=== PATIENT | female | born 1985 | race Caucasian/White ===

== ENCOUNTER → 2018-02-14 | Outpatient (CLI) | payer OTHER, BC ==
[~2018-02-14] MED LIST: ACET-1757 PO; FLEC50TA25 PO; No meds per pt.
== END | disposition home or self-care (01) ==
LOC: CFH 14:48
PROVIDERS: ATTEND Internal Medicine Cardiovascular Disease
DX: R07.9 Chest pain, unspecified (principal); Z87.891 Personal history of nicotine dependence; Z86.79 Personal history of other diseases of the circulatory system
CPT/HCPCS: 93306

== ENCOUNTER → 2020-03-04 | Outpatient (CLI) | payer OTHER ==
[~2020-03-04] MED LIST changes: -ACET-1757 PO; +ACET-2065 PO
== END | disposition home or self-care (01) ==
LOC: CVU 07:44
PROVIDERS: ATTEND Internal Medicine Cardiovascular Disease
DX: I08.8 Other rheumatic multiple valve diseases (principal); R07.9 Chest pain, unspecified; I49.3 Ventricular premature depolarization
CPT/HCPCS: 93306

== ENCOUNTER 2020-06-26 06:09 | Day surgery (SDC) | payer OTHER ==
[~2020-06-26] VITALS: Ht 165.1 cm; Wt 71.0 kg
[2020-06-26] MEDS ORDERED: SODIUM CHLORIDE 0.9% 1,000 ML IV SCH (06:30)
[2020-06-26 06:31] VITALS: BP 130/87
[2020-06-26] MEDS ORDERED: MULT-257 PO (06:33)
[2020-06-26 07:02] LABS: BASOPHILS % (AUTO) 0 % (0-1); EOSINOPHILS % (AUTO) 1 % (1-7); LYMPHOCYTES % (AUTO) 29 % (22-44); MEAN CORPUSCULAR HGB CONC 34.2 g/dL (32.4-35.8); MEAN PLATELET VOLUME 9.3 fL (7.4-10.4); MONOCYTES % (AUTO) 6 % (2-9); NEUTROPHILS % (AUTO) 63 % (42-75); PLATELET COUNT 239 x10^3/uL (130-400); RED BLOOD COUNT 4.43 x10^6/uL (3.82-5.3); RED CELL DISTRIBUTION WIDTH 13.2 % (9.6-15.2)
[2020-06-26 07:03] LABS: MD NO
[2020-06-26 07:13] LABS: ANION GAP 7 mmol/L (5-15); CALCIUM 8.8 mg/dL (8.5-10.1); CHLORIDE 111 mmol/L (98-107); CREATININE 0.75 mg/dL (0.55-1.02)
[2020-06-26 07:37] LABS: INTERNATIONAL NORMALIZED RATIO 1.02 (0.93-1.1); PROTHROMBIN TIME 10.9 Seconds (9.6-11.5)
[2020-06-26] MEDS ORDERED: FENTANYL PF 100 MCG/2ML ONE (07:48)
[2020-06-26] MEDS ORDERED: MIDAZOLAM 1 MG/ML, 5ML ONE (07:48)
[2020-06-26] MEDS ORDERED: ISOPROTERENOL 0.2MG/ML, 5ML ONE (07:48)
[2020-06-26] MEDS ORDERED: LIDOCAINE 2%, 20ML ONE (07:49)
[2020-06-26] MEDS ORDERED: ACETAMINOPHEN 325 MG TABLET ONE (10:11)
[2020-06-27] MEDS ORDERED: MULTIVITAMIN 1 TABLET PO SCH (09:00)
== END 2020-06-26 14:25 | disposition home or self-care (01) ==
LOC: CACL 06:09
PROVIDERS: ATTEND Internal Medicine Cardiovascular Disease
DX: I49.3 Ventricular premature depolarization (principal); I47.2 Ventricular tachycardia; Z79.01 Long term (current) use of anticoagulants; Z79.899 Other long term (current) drug therapy; Z88.8 Allergy status to other drugs, medicaments and biological substances
CPT/HCPCS: 36415; 71046; 80048; 84703; 85025; 85610; 85730; 93005; 93623; 93654; 99156; C1894; C2630; J2250; J3010; 99157

== ENCOUNTER 2021-01-11 12:05 | Emergency (ER) | payer OTHER ==
[~2021-01-11] VITALS: Ht 165.1 cm; Wt 75.2 kg
[~2021-01-11 12:05] MED LIST changes: +MULT-257 PO
--- NOTE | 2021-01-11 14:22 | NUR ---
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
--- NOTE | 2021-01-11 14:46 | NUR ---
pt here with right eye swelling that progressed to headache on right side of head. denies hx of headaches. Hx of ablation for PVC's, but no other health history. Awaiting MD oglesby.
--- NOTE | 2021-01-11 15:02 | NUR ---
BEDSIDE REPORT RECEIVED FROM ETHAN PIERRE
[2021-01-11] MEDS ORDERED: ONDANSETRON ODT 4 MG PO ONE (15:52)
[2021-01-11] MEDS ORDERED: HYDROmorphone 1 MG/ML, 1ML INJ IM ONE (16:00)
[2021-01-11] MEDS ORDERED: HYDROmorphone 2 MG/ML, 1ML ONE (16:32)
[2021-01-11] MEDS ORDERED: ONDANSETRON ODT 4 MG ONE ×2 (16:33→16:34)
--- NOTE | 2021-01-11 16:41 | NUR ---
pt medicated per order, tolerated well. awaiting ct results and dispo
[2021-01-11 17:17] VITALS: BP 128/86
--- NOTE | 2021-01-11 17:59 | NUR ---
at time of discharge, pt still complaining of nausea/headache. CAMPBELL Luz wants to keep pt to monitor
--- NOTE | 2021-01-11 18:26 | NUR ---
PIV PLACED, PT TO CT AT THIS TIME
[2021-01-11] MEDS ORDERED: GADOTERATE 7.5 MMOL/15ML SYR ONE (18:49)
[2021-01-11] MEDS ORDERED: PROCHLORPERAZINE 5 MG/ML, 2ML ONE (19:24)
[2021-01-11] MEDS ORDERED: KETOROLAC 60 MG/2 ML ONE (19:24)
[2021-01-11] MEDS ORDERED: PROCHLORPERAZINE 5 MG/ML, 2ML IM ONE (19:30)
[2021-01-11] MEDS ORDERED: DIHYDROERGOTAMINE 1 MG/ML, 1ML IM ONE (19:30)
[2021-01-11] MEDS ORDERED: KETOROLAC 30 MG/1 ML IM ONE (19:30)
--- NOTE | 2021-01-11 19:33 | NUR ---
pt medicated per order, tolerated well. opthamologist at [facility] for eval.
--- NOTE | 2021-01-11 19:33 | NUR ---
pt medicated per order, tolerated well. opthamologist at [facility] for eval.
--- NOTE | 2021-01-11 20:13 | NUR ---
pt educated on dc instructions, vrebalized undertsanding. ambulatory to dc desk with steady gait.
== END 2021-01-11 20:18 | disposition home or self-care (01) ==
LOC: ED 13:00
DX: G43.909 Migraine, unspecified, not intractable, without status migrainosus (principal); H57.89 Other specified disorders of eye and adnexa; R11.0 Nausea
CPT/HCPCS: 70450; 70480; 70553; 96372; 99285; A9575; J0780; J1170; J1885; Q0162